=== PATIENT | male | born 1960 | race African-American/Black ===

== ENCOUNTER → 2018-02-07 | Day surgery (SDC) | payer BC ==
[~2018-02-07] MED LIST: FENTANYL CITRATE/PF 100MCG/2 ML INJ ONE; HYOSCYAMINE SULFATE 0.5 MG/ML AMP ONE; LIDOCAINE HCL 2% LOCAL INJ 5 ML SDV VIAL INJ ONE; MIDAZOLAM HCL 2 MG/2 ML VIAL ONE; PROPOFOL IV EMULSION 10 MG/ML 50 ML VIAL ONE
[2018-02-07 15:30] VITALS: BP 122/88
--- NOTE | 2018-02-08 07:46 | Operative Report ---
DATE OF PROCEDURE: February 07, 2018 REFERRING PHYSICIAN: Matheus Linton MD PROCEDURE PERFORMED: Colonoscopy and polypectomy with biopsies. INDICATIONS FOR COLONOSCOPY: Colorectal cancer screening. MEDICATION: Patient was done under MAC. Please see anesthesiologist's note. PROCEDURE: With the patient in the left lateral decubitus position, the flexible fiberoptic Olympus colonoscope was inserted into the rectum with ease and advanced all the way to the cecum. Mucosa overlying the cecum appeared to be within normal limits. The ileocecal valve was intubated, and the scope was advanced into the terminal ileum. Biopsies were obtained. The scope was then withdrawn back into the colon. It was then withdrawn slowly. Mucosa overlying the ascending colon appeared to be within normal limits. One polyp was snared from the transverse colon. The descending other than for some diverticular disease grossly appeared to be within normal limits. Also, additional diverticular disease was noted in the sigmoid colon. One polyp was snared from the sigmoid colon. The rectum grossly appeared to be within normal limits. The scope was then retroflexed into the distal rectum, and small internal hemorrhoids were noted, none of which was actively bleeding. The scope was then straightened out. It was subsequently withdrawn. Patient tolerated the procedure well. IMPRESSION 1. Transverse colon polyp, snared. 2. Diverticulosis. 3. Sigmoid colon polyp, snared. 4. Internal hemorrhoids, none actively bleeding. PLAN: Follow up histology. Initiate Bentyl 10 mg 1 p.o. t.i.d. and VSL #3 one p.o. daily. Patient might benefit from a followup colonoscopy in 3 years. Job#: [id number]
== END | disposition home or self-care (01) ==
LOC: OR 11:34
PROVIDERS: ATTEND Internal Medicine Gastroenterology
DX: R10.30 Lower abdominal pain, unspecified (principal); D12.3 Benign neoplasm of transverse colon; D12.5 Benign neoplasm of sigmoid colon; R19.7 Diarrhea, unspecified; K57.30 Diverticulosis of large intestine without perforation or abscess without bleeding; K64.8 Other hemorrhoids; Z01.810 Encounter for preprocedural cardiovascular examination; Z87.891 Personal history of nicotine dependence
CPT/HCPCS: 45380; 45384; 45385; 93005; J1980; J2001; J2250; 45378

== ENCOUNTER 2018-06-25 14:15 | Emergency (ER) | payer BC ==
[~2018-06-25] VITALS: Ht 190.5 cm; Wt 96.2 kg
--- OUTSIDE RECORDS SUMMARY | 2018-06-25 14:19 | XMS REPORT | Summary of Care ---
Author Author [facility] Address Unknown Phone Unavailable Encounter GRACE Huertas(TONA) [id number] Date(s): 06/18/17 - 06/18/17 [facility] [id number] [place] [phone] Discharge Disposition: Home or Self Care Attending Physician: Jessica Hernández MD Vital Signs Most recent to 1 oldest [Reference Range]: Height 191.77 cm (06/18/17 2:36 PM) Temperature Oral 98.3 DegF [96.4-99.1 DegF] (06/18/17 2:36 PM) Blood Pressure 131/80 mmHg [90-140/60-90 mmHg] (06/18/17 2:36 PM) Respiratory Rate 16 BRMIN [14-20 BRMIN] (06/18/17 2:36 PM) Peripheral Pulse 92 bpm Rate [60-100 bpm] (06/18/17 2:36 PM) Weight 98.045 kg (06/18/17 2:36 PM) Body Mass Index 26.66 m2 (06/18/17 2:36 PM) Problem List No data available for this section Allergies, Adverse Reactions, Alerts Substance Reaction Severity Status NKDA Active Medications Azithromycin 5 Day Dose Pack 250 mg oral tablet See Instructions, Take 2 tablets by mouth the first day then 1 tablet by mouth d ays 2-5., X 5 day, # 6 tab, 0 Refill(s), Pharmacy: [facility] [place] [id number] Start Date: 06/18/17 Stop Date: 06/23/17 Status: Completed Bromfed DM oral syrup 10 mL, PO, TID, PRN cough, X 8 day, # 240 mL, 0 Refill(s), Pharmacy: [facility] [id number] Start Date: 06/18/17 Stop Date: 06/26/17 Status: Completed Medrol Dosepak 4 mg oral tablet See Instructions, PO, Take by mouth as directed on label., # 1 Pack, 0 Refill(s) , Pharmacy: [facility] [id number] Start Date: 06/18/17 Stop Date: 06/24/17 Status: Ordered Results No data available for this section Immunizations No data available for this section Procedures No data available for this section Social History Social History Type Response Smoking Status Former smoker; Exposure to Tobacco Smoke None; Cigarette Smoking Last 365 Days No; Reg Smoking Cessation Counseling No entered on: 06/18/17 Assessment and Plan No data available for this section
--- OUTSIDE RECORDS SUMMARY | 2018-06-25 14:19 | XMS REPORT | Continuity of Care Document ---
Author Author [facility] Address Unknown Phone Unavailable Problems Problem Status Onset Date Classification Date Reported Comments Source Medications Medication Details Route Status Patient Instructions Ordering Provider Order Date Source Brompheniramine Maleate 0.4 MG/ML / Dextromethorphan Hydrobromide 2 MG/ML / Pseudoephedrine Hydrochloride 6 MG/ML Oral Solution [Bromfed DM] 10 mL, PO, TID, PRN cough, X 8 day, # 240 mL, 0 Refill(s), Pharmacy: [facility] [id number] No Longer Active 06/18/2017 [facility] {21 (Methylprednisolone 4 MG Oral Tablet [Medrol]) } Pack [Medrol Dosepak] See Instructions, PO, Take by mouth as directed on label., # 1 Pack, 0 Refill(s), Pharmacy: [facility] [id number] Active 06/18/2017 [facility] Azithromycin 5 Day Dose Pack 250 mg oral tablet See Instructions, Take 2 tablets by mouth the first day then 1 tablet by mouth days 2-5., X 5 day, # 6 tab, 0 Refill(s), Pharmacy: [facility] [id number] No Longer Active 06/18/2017 [facility] Allergies, Adverse Reactions, Alerts Substance Category Reaction Severity Reaction type Status Date Reported Comments Source Immunizations Immunization Date Given Site Status Last Updated Comments Source Results Order Name Results Value Reference Range Date Interpretation Comments Source Vital Signs Vital Sign Value Date Comments Source Weight 98.045 06/18/2017 [facility] BMI Calculated 26.66 06/18/2017 [facility] Height 191.77 cm 06/18/2017 [facility] Temperature Oral (F) 98.3 F 06/18/2017 [facility] Respitory Rate 16 06/18/2017 [facility] Heart Rate 92 06/18/2017 [facility] Systolic (mm Hg) 131 06/18/2017 [facility] Diastolic (mm Hg) 80 06/18/2017 [facility] Encounters Location Location Details Encounter Type Encounter Number Reason For Visit Attending Provider ADM Date DC Date Status Source Outpatient [id number] JESSICA HERNÁNDEZ 06/18/2017 Active [facility] [id number] Jessica Hernández 06/18/2017 06/19/2017 [facility] Procedures Procedure Code Date Perfomer Comments Source
[2018-06-25] MEDS ORDERED: SODIUM CHLORIDE 0.9% 1000ML 1,000 ML IV STA (14:31)
[2018-06-25] MEDS ORDERED: ASPIRIN 81 MG CHEW TAB PO STA (14:31)
--- NOTE | 2018-06-25 15:27 | Diagnostic Imaging Report ---
History: Vertigo Comparison studies: None Technique: Axial images were obtained from the skull base to the vertex. Coronal and sagittal reconstructions obtained from the axial data. Dose modulation, iterative reconstruction, and/or weight based adjustment of the mA/kV was utilized to reduce the radiation dose to as low as reasonably achievable. Findings: Scalp/skull: No abnormalities. No fractures, blastic or lytic lesions. Extra-axial spaces: No masses. No fluid collections. Brain sulci: Appropriate for age. Ventricles: Normal in size and configuration. No hydrocephalus. Parenchyma: No abnormal densities. No masses, hemorrhage, acute or chronic cortical vascular insults. Sellar/suprasellar region: No abnormalities Craniocervical junction: Patent foramen magnum. No Chiari one malformation. IMPRESSION: No abnormalities . Signed by: DR Wyatt Lundberg M.D. on 06/25/2018 3:23 PM
--- NOTE | 2018-06-25 15:29 | Diagnostic Imaging Report ---
Examination: Single AP view of the chest. COMPARISON: None. INDICATION: Chest pain DISCUSSION: Lines/tubes: None. Lungs: The lungs are well inflated and clear. There is no evidence of pneumonia or pulmonary edema. Pleura: There is no pleural effusion or pneumothorax. Heart and mediastinum: The heart and the mediastinum are unremarkable. Bones and soft tissues: No acute bony abnormalities. Degenerative changes in the thoracic spine. IMPRESSION: 1. No acute cardiopulmonary abnormalities. Signed by: Dr. Dusty Mcpherson M.D. on 06/25/2018 3:26 PM
--- NOTE | 2018-06-25 18:36 | NUR ---
PATIENT NEVER ARRIVED TO ROOM ER4. UNABLE TO LOCATE PATIENT TO BRING BACK TO ROOM. CHARGE NURSE MADE AWARE THAT PATIENT COULD NOT BE LOCATED
== END 2018-06-25 18:00 | disposition left against medical advice (07) ==
LOC: ER 14:15
DX: R42 Dizziness and giddiness (principal); R07.89 Other chest pain; R94.31 Abnormal electrocardiogram [ECG] [EKG]
CPT/HCPCS: 70450; 71045; 93005

== ENCOUNTER → 2021-03-30 | Day surgery (SDC) | payer BC ==
[~2021-03-30] MED LIST changes: -FENTANYL CITRATE/PF 100MCG/2 ML INJ ONE; +GLUCAGON FOR INJ 1 MG VIAL ONE; -HYOSCYAMINE SULFATE 0.5 MG/ML AMP ONE; +HYOSCYAMINE SULFATE 0.5 MG/ML INJ ONE; +LABETALOL HCL 20 ML ONE; -LIDOCAINE HCL 2% LOCAL INJ 5 ML SDV VIAL INJ ONE; +POVIDONE IODINE 0.05% 0.05 % ML PO ONE; +PROPOFOL IV EMULSION 10 MG/ML 20 ML VIAL ONE; -PROPOFOL IV EMULSION 10 MG/ML 50 ML VIAL ONE
[2021-03-30 15:00] VITALS: BP 144/88
== END | disposition home or self-care (01) ==
LOC: OR 12:03
PROVIDERS: ATTEND Internal Medicine Gastroenterology
DX: Z12.11 Encounter for screening for malignant neoplasm of colon (principal); Z86.010 Personal history of colon polyps; K58.9 Irritable bowel syndrome, unspecified; K57.30 Diverticulosis of large intestine without perforation or abscess without bleeding; K59.09 Other constipation; K64.8 Other hemorrhoids; R03.0 Elevated blood-pressure reading, without diagnosis of hypertension; G51.0 Bell's palsy; Z01.810 Encounter for preprocedural cardiovascular examination; Z01.812 Encounter for preprocedural laboratory examination; Z20.822 Contact with and (suspected) exposure to COVID-19; Z68.26 Body mass index [BMI] 26.0-26.9, adult; Z80.0 Family history of malignant neoplasm of digestive organs
CPT/HCPCS: 45378; 93005; J1610; J1980; J2704; J3490; U0002; J2250

== ENCOUNTER → 2024-01-25 | Day surgery (SDC) | payer BC ==
[~2024-01-25] MED LIST changes: +DEXMEDETOMIDINE HCL 200 MCG/2 ML VIAL ONE; -GLUCAGON FOR INJ 1 MG VIAL ONE; -LABETALOL HCL 20 ML ONE; +LIDOCAINE HCL 2% LOCAL INJ 5 ML SDV VIAL INJ ONE; -MIDAZOLAM HCL 2 MG/2 ML VIAL ONE; -POVIDONE IODINE 0.05% 0.05 % ML PO ONE; +PROPOFOL IV EMULSION 10 MG/ML 50 ML VIAL IV ONE; +ZESTRIL2.5 MG PO; +ZINC30 M1 PO
[2024-01-25] MEDS: LACTATED RINGER'S 1,000 ML ONE (07:49)
[2024-01-25 11:31] VITALS: BP 126/82; PULSE 84; RESP 17; O2SAT 98
== END | disposition home or self-care (01) ==
LOC: OR 07:27
PROVIDERS: ATTEND Internal Medicine Gastroenterology
DX: Z12.11 Encounter for screening for malignant neoplasm of colon (principal); K63.5 Polyp of colon; K57.30 Diverticulosis of large intestine without perforation or abscess without bleeding; K64.8 Other hemorrhoids; I10 Essential (primary) hypertension; Z01.810 Encounter for preprocedural cardiovascular examination; Z79.899 Other long term (current) drug therapy; Z80.0 Family history of malignant neoplasm of digestive organs
CPT/HCPCS: 45380; 93005; J1980; J2001; J2704 ×2; J7121; 45378; 45385